=== PATIENT | male | born 2000 | race Caucasian/White ===

== ENCOUNTER 2024-01-04 14:24 | Outpatient (REF) | payer SELFPAY ==
[2024-01-04 14:27] VITALS: BP 126/93; PULSE 77; RESP 18; TEMP 36.4; O2SAT 97; BMI 32.7
--- NOTE | 2024-01-04 15:07 | EDS_ITS ---
HPI History of Present Illness HPI Narrative: Patient presents with needlestick exposure to left index finger that occurred today. 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 Patient states there is minimal bleeding. Patient states he squeezed a finger and irrigated. Patient is unsure of the source patient had lab work drawn. Patient knows who the source patient is. Patient states his immunizations are up-to-date. Patient denies any redness or swelling. Chief Complaint: Occup Expose Onset/Context/Timing Onset: Today Context: Sudden Onset Quality of Pain: Dull Location: Proximal phalanx left index finger Maximum Severity: Mild Worsened by: Nothing Relieved by: Nothing Narrative Tetanus Immunization: <5 years [facility] Medical History (Updated 01/04/24 @ 15:[address] Eduardo Yeung DO) Asthma Allergy/AdvReac Type Severity Reaction Status Date / Time No Known Allergies Allergy Verified 01/04/24 14:26 no surgical history Social History Smoking Status: Never smoker ROS ROS ED Constitutional Constitutional ED: Denies chills or fever(s) Eyes Eyes: Denies blurry vision or change in vision ENT ENT ED: Denies rhinorrhea or sore throat Cardiovascular Cardiovascular: Denies chest pain or palpitations Respiratory/Chest Respiratory/Chest: Denies cough or dyspnea Gastrointestinal Gastrointestinal: Denies nausea or vomiting Genitourinary Genitourinary ED: Denies dysuria or hematuria Musculoskeletal Musculoskeletal: Denies back pain or neck pain Integumentary Denies abscess or rash Neurologic Neurologic: Denies headache(s) or weakness Allergic/Immunologic Allergic/Immunologic ED: Denies mouth swelling or urticaria EXAM Physical Exam Const Vital Signs: 01/04/24 14:27 Temperature 97.6 F L Temperature Source Temporal Pulse Rate 77 Respiratory Rate 18 Blood Pressure 126/93 H Blood Pressure Mean 104 Pulse Ox 97 Oxygen Delivery Method Room Air Positive well nourished and well developed General Appearance ED: well developed and NAD Neck full ROM Skin Skin Narrative: There is a small puncture wound on the volar aspect of the proximal phalanx of the left index finger near the PIP joint. There is no active bleeding noted. There is full range of motion. There is no erythema noted. There is no discharge or drainage noted. Sensation was intact to light touch in all digits. Capillary refill was less than 2 seconds in all digits. Strength is 5/5 in flexion and extension of the MP, PIP, and DIP joints. There is no tenderness over the flexor tendon. There is no swelling noted. MDM MDM MDM Narrative Medical decision making narrative: Postexposure labs were obtained. Patient was instructed to follow-up with employee health. Patient was instructed to keep wound clean and dry. Patient was instructed to return if worse in any way. Patient understood and was agreeable with the plan. All questions were answered. Discharge Plan Triage Chief Complaint: Occup Expose ED Provider: Eduardo Yeung Dx/Rx/DC Orders Clinical Impression: Accidental needlestick injury with exposure to body fluid, Asthma Instructions: ED NEEDLE STICK Health Care Worker Disposition Disposition: Home, Self Care
[2024-01-04 15:27] VITALS: BP 120/89; PULSE 65; RESP 16; TEMP 36.9; O2SAT 100
--- NOTE | 2024-01-04 15:31 | ED.RN ---
1520: spoke w/ John Grider and doctor Anjana, patient does not need blood testing at this time. Patient instructed to follow-up w/ employee health and primary provider.
== END 2024-01-04 15:30 | disposition home or self-care (01) ==
LOC: ED 14:24
PROVIDERS: PCP Family Medicine; Visit Provider Emergency Medicine
DX: Z77.21 Contact with and (suspected) exposure to potentially hazardous body fluids (principal); W46.0XXA Contact with hypodermic needle, initial encounter

== ENCOUNTER → 2024-07-05 | Outpatient (CLI) | payer OTHER, SELFPAY ==
[2024-07-05 13:15] LABS: Absolute Lymphocyte Count 1.35 X10^3/uL (0.83-4.51); Basophil# 0.02 X10^3/uL; Basophil% 0.4 % (0-1); Eosinophils% 1.9 % (0-5); Hematocrit 46.9 % (40-54); Hemoglobin 15.3 g/dL (13.0-16.5); Lymphocyte # 1.35 X10^3/ul (0.83-4.51); Lymphocyte % 25.8 % (19-41); Mean Corp Hgb Conc 32.6 g/dL (32-36); Mean Corpuscular Hgb 28.3 pg (27.0-32.0); Mean Corpuscular Volume 86.7 fL (80-94); Mean Platelet Vol. 9.7 fl (6.2-12.0); Monocyte# 0.73 X10^3/uL; NRBC Flagged by Analyzer 0 % (0-5); Neutrophil # 3.01 X10^3/uL (2.7-7.7); Neutrophil % 57.5 % (47-70); Platelet Count 204 K/mm3 (150-450); RBC Distribution Width CV 12.6 % (11.6-14.6); RBC Distribution Width SD 39.7 fl (35.1-43.9); Red Blood Count 5.41 M/mm3 (4.6-6.2); White Blood Count 5.2 K/mm3 (4.4-11.0)
[2024-07-05 13:34] LABS: Vitamin B12 487 pg/mL (211-911); Vitamin D,25 Hydroxy 24.7 ng/mL
[2024-07-05 13:59] LABS: ALB/GLOB Ratio 1.1 RATIO (0.9-2.4); AST(SGOT) 18 U/L (15-37); Alanine Aminotransfer ALT/SGPT 42 U/L (16-61); Alkaline Phosphatase 76 U/L (45-117); Anion Gap 3 (5-15); BUN 12 mg/dL (7-18); BUN/Creat Ratio 12.9 RATIO (10-20); Calcium,Total 9.6 mg/dL (8.5-10.1); Chloride 108 mmol/L (98-107); Creatinine, Serum 0.93 mg/dL (0.70-1.30); EST Glomerular Filtration Rate 106 mL/min (>60); Est Glom Filt Rate - Afr Amer 128 mL/min (>60); Globulin 3.7 g/dL (2.2-4.2); Glucose 85 mg/dL (74-106); Magnesium 2.2 mg/dL (1.6-2.6); Potassium 3.7 mmol/L (3.5-5.1); Protein, Total 7.7 g/dL (6.4-8.2); Sodium Level 139 mmol/L (136-145)
[2024-07-11 15:08] LABS: Testosterone, % Free 2.49 % (1.50-4.20); Testosterone, Free 8.12 ng/dL (5.00-21.00); Testosterone, Total 326 ng/dL (264-916)
== END | disposition home or self-care (01) ==
LOC: LAB 12:26
PROVIDERS: PCP Family Medicine; Referring Provider Family Medicine; Visit Provider Family Medicine
DX: F41.8 Other specified anxiety disorders (principal); R53.83 Other fatigue
CPT/HCPCS: 36415; 80053; 82306; 82607; 83735; 84402; 84403; 84443; 85025

== ENCOUNTER → 2024-08-30 | Outpatient (CLI) | payer OTHER, SELFPAY | END | disposition home or self-care (01) | LOC: SL 19:49 | PROVIDERS: PCP Family Medicine; Visit Provider Internal Medicine Pulmonary Disease | DX: G47.10 Hypersomnia, unspecified (principal); G47.33 Obstructive sleep apnea (adult) (pediatric) | CPT/HCPCS: 95810 ==

== ENCOUNTER → 2024-08-31 | Outpatient (CLI) | payer OTHER, SELFPAY ==
[2024-08-31 11:27] LABS: Amphetamine Urine VISTA NEGATIVE (<1000 ng/mL); Barbiturate Urine VISTA NEGATIVE (< 200 ng/mL); Benzodiazepine Urine VISTA NEGATIVE (< 200 ng/mL); Cocaine Urine VISTA NEGATIVE (< 300 ng/mL); Ecstacy Urine VISTA NEGATIVE (< 500 ng/mL); Methadone Urine VISTA NEGATIVE (< 300 ng/mL); PCP Urine VISTA NEGATIVE (< 25 ng/mL); THC Urine VISTA NEGATIVE (< 50 ng/mL); Vista UDS pH Range 6
== END | disposition home or self-care (01) ==
LOC: SL 06:40
PROVIDERS: PCP Family Medicine; Visit Provider Internal Medicine Pulmonary Disease
DX: G47.10 Hypersomnia, unspecified (principal)
CPT/HCPCS: 80307; 95805

== ENCOUNTER 2024-09-14 20:16 | Emergency (ER) | payer OTHER, SELFPAY ==
[2024-09-14 20:17] VITALS: BP 147/96; PULSE 81; RESP 16; TEMP 36.3; O2SAT 96; BMI 33.0
--- NOTE | 2024-09-14 21:33 | EDS_ITS ---
HPI History of Present Illness Chief Complaint: Occup Expose [facility] Medical History ADHD SCOTT (generalized anxiety disorder) Asthma Home Medications ?Medication ?Instructions ?Recorded ?Last Taken ?Type buspirone 7.5 mg tablet 7.5 mg PO BID #60 tabs 09/12/24 Unknown Rx methylphenidate HCl 18 mg 18 mg PO QAM 30 days #30 tabs 09/12/24 Unknown Rx tablet,extended release 24 hr albuterol sulfate 90 mcg/actuation 2 puff inhalation Q6H PRN 09/14/24 Unknown History aerosol inhaler shortness of breath or wheezing Allergy/AdvReac Type Severity Reaction Status Date / Time No Known Allergies Allergy Verified 09/14/24 20:19 Family History Grandfather Alcoholism Cancer Mental disorder Parkinson disease Mother Anxiety Arthritis Depression High cholesterol Mental disorder Father Anxiety Asthma Depression Hypertension High cholesterol Grandmother Anxiety Autoimmune disorder Depression Heart disease Hypertension Parkinson disease CVA (cerebral vascular accident) Social History (Updated 09/14/24 @ 21:35 by Joanna Bowen) household members: spouse current occupational status: employed Smoking Status: Never smoker EXAM Physical Exam Const Vital Signs: 09/14/24 20:17 Temperature 97.3 F L Temperature Source Temporal Pulse Rate 81 Respiratory Rate 16 Blood Pressure 147/96 H Blood Pressure Mean 113 Pulse Ox 96 Oxygen Delivery Method Room Air MDM MDM MDM Narrative Medical decision making narrative: HISTORY OF PRESENT ILLNESS: 24 M here with concern for formaldehyde exposure. This occurred just prior to arrival. There is no direct contact but he was in a room with mild hide spilled is being cleaned with a mop. He notes that coworkers were having symptoms. So he presents to ED for further evaluation REVIEW OF SYSTEMS: Pertinent positives: exposure to formaldehyde Pertinent negatives: Difficulty swallowing, eye irritation, shortness of breath, skin irritation PHYSICAL EXAM: Nursing triage notes reviewed, Vital signs reviewed Constitutional: please see mdm HENT: MMM Eyes: Pupils equal round and reactive to light, Extraocular muscles intact, visual hardy intact, visual acuity 20/13 on the right Neck: No stridor, no JVD, full neck ROM Lungs: Clear to auscultation, No wheezing or rales. No increased work of breathing, no conversational dyspnea, no accessory muscle use, no nasal flaring. No respiratory distress noted Heart: Regular rate and rhythm, No murmurs, No rubs and No gallops, 2+ distal pulses (radial, femoral, posterior tibial) in all extremities Abdomen: Soft, there is no tenderness, rigidity, rebound or guarding, no obvious peritoneal signs, no palpable pulsatile abdominal masses, no auscultated abdominal bruit : No CVAT Extremities: No edema Neuro: No new focal neurological deficits, cranial nerves II through XII intact, 5/5 strength in all present extremities. Intact sensation to light touch in all present extremities, 2+ reflexes bilateral patella tendons. Skin: No rash or lesions noted MEDICAL DECISION MAKING: Chief Complaint: formalin exposure Factors affecting care: hx of accidental needle stick Social determinants of health: none History obtained from others: none Consults: Poision control : direct exposure could cause eye irritation. recommended decontamination. Avoid re-exposure. WOuld not expect systemic toxicity without direct exposure. With direct exposure. MDM Narrative: The patient was initially hemodynamically stable, afebrile and nontoxic- appearing. Exam without obvious mucosal involvement. No obvious skin irritation or eye irritation. Patient was immediately decontaminated. Patient not appear to have any significant exposure. In fact he is not directly exposed to formalin or formaldehyde he has no symptoms. He is appropriate for discharge The patient and/or family, caregivers express understanding. The patient and/or family, caregivers agrees with the plan. Shared decision making: I will have a discussion with the patient and or visitors regarding risk/benefits of further testing or admission. They will be made aware of of the risk/benefits inherent in this decision they will be given the opportunity to voice understanding. Total critical care time today provided was at least 0 minutes. This excludes separately billable procedures. Critical care time (if documented) is secondary to the patient having high probability of clinically significant/life threatening deterioration in the patient's condition which required my urgent intervention. Impression: 1. Occupational exposure 2. Formaldehyde exposure Dispo: Discharge home This note was generated with [employer] dictation software. It may contain incorrect words, spelling, and punctuation that were not noted in review of the chart prior to signing. Discharge Plan Triage Chief Complaint: Occup Expose ED Provider: Pawan Kurtz Dx/Rx/DC Orders Prescriptions: No Action buspirone 7.5 mg tablet 7.5 mg PO BID Qty: 60 1RF methylphenidate HCl 18 mg tablet extended release 24hr 18 mg PO QAM 30 Days Qty: 30 0RF albuterol sulfate 90 mcg/actuation HFA aerosol inhaler 2 puff inhalation Q6H PRN (Reason: shortness of breath or wheezing) Primary Care Provider: Nita Verma Referrals: Nita Verma MD [Primary Care Provider] - Print Language: Slovak
[2024-09-14 22:29] VITALS: BP 140/78; PULSE 78; RESP 16; TEMP 36.6; O2SAT 100
== END 2024-09-14 22:30 | disposition home or self-care (01) ==
PROVIDERS: Emergency Provider Emergency Medicine; PCP Family Medicine; Visit Provider Emergency Medicine
DX: Z57.9 Occupational exposure to unspecified risk factor (principal); T59 Toxic effect of other gases, fumes and vapors; J45.909 Unspecified asthma, uncomplicated
CPT/HCPCS: 99283

== ENCOUNTER 2025-08-08 08:00 | Outpatient (RCR) | payer OTHER, SELFPAY ==
--- NOTE | 2025-08-08 09:00 | BH.MTP_ITS ---
Master Treatment Plan Patient Information Program Physician:: Dr. Sendy Hagen Primary Therapist:: Prem Rivera Psychiatric Diagnoses Psychiatric Diagnoses:: Major Depressive Disorder, recurrent, severe, w/o psychotic features Generalized Anxiety Disorder Diagnosis Code(s):: F33.2; f41.1 Estimated LOS Estimated LOS (in weeks):: 7 Problem/Goal #1 Problem/Goal #1 Stated Goal:: Client will reduce depressive symptoms, worthlessness, suicidal ideations, anhedonia, and negative core beliefs AEB self-report and reduced scores on the depression and suicidal thought domains of outcomes measurements. Description of Barriers: Mental health stigma, significant relationships confl icts, stressful job, hx of addiction/compulsive behaviors. Functional Impact: Recent separation from , reported suicidal thoughts to his outpatient therapist just prior to IOP admit, long-standing mental health struggles. Goal Relevant Strengths/Supports: motivated and insightful. Objectives Objective #1: Stated Objective: Client will identify 2-3 cognitive distortions and core mistaken beliefs that lead to depressive symptoms and learn 2-3 ways to manage these thoughts to reduce symptoms. Interventions: Through individual and group counseling will provide education on the most cognitive distortions and mistaken beliefs. Will also teach client the connection between thoughts, emotions, and feelings. Therapist will use CBT and DBT techniques to help client gain awareness of thinking errors and learn how to more effectively handle negative thoughts. Discharge Criteria: Will be able to identify 2-3 commonly used cognitive distortions and mistaken beliefs as well as strategies to challenge/reframe. Target Date: 09/26/25 Review Date: 08/29/25 Objective #2: Stated Objective: Client will work with therapist to develop a concrete ?crisis plan? or emotional dysregulation plan to implement during depressive episodes or acute events which includes emergency telephone numbers, internal/external coping strategies for SI/overwhelming emotions, lists of supports, warning signs, positive aspects of life, and motivations Interventions: Through individual and group interventions with provide education on importance of a crisis plan? or emotional dysregulation plan which as well as strategies to implement in these plans. Discharge Criteria: Completed emotion regulation plan Target Date: 09/26/25 Review Date: 08/29/25 Problem/Goal #2 Problem/Goal #2 Stated Goal:: Client will reduce overall frequency, intensity, and duration of anxiety to improve functioning AEB self report and reduction of scores on the anxiety domain of outcome measurement. Loi also reduce engagement in unhealthy compulsive acts and develop healthy coping strategies to manage anxiety. Description of Barriers: mental health stigma, significant relationships conflicts, stressful job, hx of addiction/compulsive behaviors. Functional Impact: According to pt his anxiety is at the core of his mental health struggles. His anxiety often causes depression, suicidal ideations, and unhealthy behaviors. He will often cope with his anxiety through unhealthy behaviors. Goal Relevant Strengths/Supports: Motivated and insightful Objectives Objective #1: Stated Objective: Complete a daily log for two weeks noting anxiety levels and coping behaviors. Will also create accountability strategies (e.g., bre blo ckers, scheduled check-ins) to support progress. Interventions: Through individual and group counseling will provide psychoeducation on triggers and coping cycles. Patient will complete a daily log tracking anxiety levels, urges, and behaviors for 14 consecutive days. Discharge Criteria: Will be able to identify triggers and 2-3 calming/coping strategies for [id number] anxiety. Will have competed a daily tracking log and accountability strategies to decrease unhealthy compulsive acts. Target Date: 09/26/25 Review Date: 08/29/25
--- NOTE | 2025-08-08 09:00 | BH.PSA_ITS ---
Source of Information Presenting Problems/Circumstances Problems, Referral Source, Mental Status, Client: The patient was referred to the Intensive Outpatient Program following an acute psychosocial stressor that triggered suicidal ideation. This episode occurred in the context of marital separation related to compulsive sexual behavior relapse. The patient presents with exacerbated symptoms of depression and anxiety, including hopelessness, worthlessness, and ruminative thoughts about significant life changes. While he currently denies active suicidal intent, chronic risk factors and functional impairment warrant a higher level of care. Psychiatric Presentation Psych Issues & Need for Admission Psychiatric Issues:: MDD, Anxiety, ADHD, and problematic porn use which is significantly impacting his marriage. Past Psychiatric History MH Treatment Hx First hospitalization:: no history of hosptializations Most recent hospitalization:: n/a Medication Trials:: No ECT Therapy:: No Current providers for mental health treatment (counselor, psychiatrist, director of casework department, etc.): Dr. Cameron Gr- Psychiatrist, [facility] Melissa Garcia- Therapist, [facility]- support group (he attends for porn addiction) Development & Family of Origin Family Who currently lives in your home?: Currently lives with his . Family History Family History Grandfather Alcoholism Cancer Mental disorder Parkinson disease Mother Anxiety Arthritis Depression High cholesterol Mental disorder Father Anxiety Asthma Depression Hypertension High cholesterol Grandmother Anxiety Autoimmune disorder Depression Heart disease Hypertension Parkinson disease CVA (cerebral vascular accident) Ethnicity Culture Do you identify yourself with any particular cultural, ethnic background, or community?: No Sexuality Sexual Orientation: Heterosexual Spirituality Christian Do you currently identify with any organized mosque?: Jainism Beliefs Is there a particular form of support from this community you can use for your recovery?: Yes (Pt's reinier is very important to home. Attends a reinier-based support group) Mental Status Memory Recent Memory: Good Remote Memory: Good Concentration Concentration: Fair Eye Contact Eye Contact: Fair Speech Speech: Articulate Thought Process Thought Process: Ruminations Insight: Good Judgment: Fair Behavior: Anxious Orientation Orientation: Time, Person, Place and Situation Appearance Appearance: Neat/clean Mood Mood: Anxious and Depressed Affect Affect: Flattened Violent Behavior/Abuse History Homicidal Ideation Do you have any homicidal thoughts? If so, explain:: No Abuse Have you ever been abused?: No Safety Do you ever feel threatened in your home? If yes, describe:: No Adult Social History Age 18 to Present Describe your current support system:: , friends, and gnosticism. 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 If yes, describe:: No Court Orders Have you had any past court orders for psychiatric treatment?: No Do you have a present court order for psychiatric treatment?: No Discharge Planning Needs Anticipated Follow-Up Private Therapist/Psychiatrist:: Melissa Whaley, [facility]- therapist, [facility] Other (to be determined): Dr. Cas Gr- psychiatrist, [facility] Family and Caregiver Contacts:: Bhavana Dash- Release of Information Signed:: Yes (therapist and psychiatrist) Certified Medical Technician Assistant's Assessment Client's Needs What are the client's feelings about the program?: I have to do something to make things better What are the client's goals?: ?Develop coping mechanisms for anxiety? ?Explore root causes of anxiety? ?Decrease compulsive behaviors? What are the client's strengths?: Pt has good insight into his anxiety and compulsive acts Diagnoses Diagnoses Diagnosis #1:: Major Depressive Disorder, recurrent, severe without psychotic features Diagnosis #2:: Generalized Anxiety Disorder Diagnosis #3:: Attention-Deficit/Hyperactivity Disorder Interpretive Summary Interpretive Summary Interpretive Summary: The patient is a 25-year-old male with a history of Major Depressive Disorder, recurrent, severe without psychotic features, Generalized Anxiety Disorder, and Attention-Deficit/Hyperactivity Disorder. He has no prior psychiatric hospitalizations.The patient was referred to the Intensive Outpatient Program (IOP) by his outpatient therapist following an acute psychosocial stressor that precipitated suicidal ideation. On 07/26/25, he presented to his therapist?s office expressing suicidal thoughts. A safety plan and lethal means counseling were completed at that time. His spouse was notified, and firearms were removed from the home. The patient currently has no access to lethal means. The patient reports a history of compulsive sexual behavior, described as ?porn addiction,? with a recent relapse that contributed to marital separation. He verbalized, ?My marriage is falling apart.? He identifies this relational disruption as a significant source of distress. At present, the patient denies active suicidal ideation, plan, or intent. He has no history of suicide attempts but endorses passive thoughts of and survival ambivalence. He reports experiencing intermittent passive wishes for approximately eight years, coinciding with chronic depressive and anxiety symptoms. Current symptoms include depressed mood, anhedonia, poor sleep, decreased appetite, low energy, feelings of hopelessness and worthlessness, and heightened anxiety related to marital uncertainty. He describes persistent ruminative thinking about potential life changes, including housing, social connections, and financial implications. Despite these symptoms, he reports maintaining ?high motivation. The patient denies homicidal ideation, psychotic symptoms, and substance use concerns. Treatment Plan Recommendations Recommendations Guidelines Recommendations:: Due to recent suicidal ideations, long-standing passive thoughts of , and recent acute psychosocial stressors recommended IOP level of care to maintain safety, prevent decompensation, and increase healthy coping.
--- NOTE | 2025-08-08 09:00 | BH.MDN_ITS ---
Multi-Disciplinary Note Note 30-min Individual: Time Started:: 09:00 Date: 08/08/25 Purpose of session/treatment goals addressed:: Utilized the session to develop treatment plan goals and objective, review pertinent psychosocial hx, and discuss current symptoms. Eye Contact:: Good Motor Activity:: Appropriate Appearance:: Neat Speech:: Appropriate Mood:: Anxious and Depressed Affect:: Congruent Thoughts:: Linear, Logical and No evidence of hallucinations/delusions noted Staff Interventions:: rapport building, treatment planning, completed risk assessment / safety planning and goal setting Client Response:: Patient expressed anticipatory anxiety regarding his upcoming admission to an Intensive Outpatient Program (IOP). On 07/24/25, he presented to his outpatient therapist with suicidal ideation, including identified methods. Following safety planning and lethal means counseling, he was referred to a higher level of care (IOP). 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 These concerns have significantly impacted his marital relationship. Patient reports that his temporarily and stayed with her mother for several days but has since returned home. He describes the relationship as having ?a little hope? but acknowledges feeling ?on extremely thin ice.? Patient is forthcoming about his compulsive pornography use, identifying it as an unhealthy coping mechanism for anxiety. When discussing treatment goals, patient stated: ?Develop coping mechanisms for anxiety? ?Explore root causes of anxiety? ?Decrease compulsive behaviors? Additionally, patient reports persistent low self-esteem and feelings of inadequacy rooted in childhood experiences. He struggles to identify effective, [id number] coping strategies for managing distress. Risks/Concerns:: Risk assessment completed. Denies active suicidal ideations, plan, or intent. Progress Toward Goals/Plan:: Limited progress as this was pt's first day in [facility]. Will be admitted to [facility] to maintain safety, increase healthy coping, and provide support. Time Stopped:: 09:30
--- NOTE | 2025-08-08 10:30 | BH.NA_ITS ---
Physical Data Vital Signs Pulse Rate: 66 Blood Pressure: 145/97 Height/Weight Height: 1.8 m Weight:: 93.44 kg Weight in Pounds: 206.0 lbs Current Medication Compliance Medication Compliance Do you take your medication as prescribed?: Yes Functional Assessment Sleep Pattern Describe any problems with sleeping: Client states he sleeps about 6-7 hours per night. Sensory/Communication Assess Vision Problems Do you have any vision problems?: Glasses Communication Problems Do you have difficulty understanding what people are saying?: No Medical Problems/History Respiratory Conditions Respiratory: Asthma Neurological Conditions Neurological: Other (See comments) (narcolepsy- diagnosed in November 2024) Pain Assessment Do you have acute or chronic pain?: No Family History Family History Grandfather Alcoholism Cancer Mental disorder Parkinson disease Mother Anxiety Arthritis Depression High cholesterol Mental disorder Father Anxiety Asthma Depression Hypertension High cholesterol Grandmother Anxiety Autoimmune disorder Depression Heart disease Hypertension Parkinson disease CVA (cerebral vascular accident) Surgical History Surgical History Have you had any surgeries? If so, list type and date:: No Substance Abuse Substance Abuse Please describe substance abuse in the last 30 days:: Client states he has not had alcohol in 2-3 years. Client denies tobacco or substance use. Client states he has 1-2 cups of coffee per day. Mental Status Summary Mental Status Significant Findings/Observations on Appearance and Mood:: Client is alert and oriented x 4. Client is casually groomed with good hygiene. Client is cooperative with assessment. Client makes fair eye contact. Client's voice has normal rate and volume. Client appears mildly anxious and is somewhat tearful during assessment. Client has a somewhat restricted affect. Client makes logical associations and has normal processing. Client denies delusions/hallucinations. Client reports some intrusive fleeting SI, but denies plan/intent. Suicide Assessment Suicidal Ideation Are you currently or have you been suicidal in the past?: Yes Suicidal Intentional Rating Scale (SIRS): Suicidal thoughts (past) (reports fleeting SI that is intrusive, states he does not want to hurt himself, denies plan/intent) Physician Notification Past Psychiatric History MH Treatment Hx Past Psychiatric Medications:: Buspar, Lexapro Age of first mental health symptoms: Client states he first took Lexapro for mental health around age 19. Describe (age, circumstance, etc) any past hospitalizations: None. Current providers for mental health treatment (counselor, psychiatrist, senior case manager, etc.): Dr. Gr for psychiatry and Melissa Toth for therapy at [facility] Fall Risk Assessment Age Age: Less than 60 Mental Status Mental Status: Willing & able to ask for assistance when needed Physical Status Physical Status: No problems Impairments Impairments: None Elimination Elimination: Continent AND independent Gait or Balance Gait or Balance: Walks independently Hx of Falls History of falls in the past 6 months: No known history Medications/Substances Psychotropics:: Antidepressants and Stimulants Medications/substances used within the past 24 hours or ordered to administer: 1-2 of the medications/substances listed above Total Score Total Points:: 1 RN Summary of Impressions Impressions Recommendations Impressions: Psychiatric Issues: generalized anxiety disorder, major depressive disorder Level of Care How do the client's current symptoms and functional deficits support need for this level of care?: Client spoke with his therapist about IOP and now has started IOP for recent SI and stressors affecting mental health. Client states his appetite has been poor for the last couple of weeks due to anxiety/depression. Client reports fleeting suicidal thoughts that he describes as intrusive and states he does not want to hurt himself. Client denies plan or intent with fleeting SI. Client states he has been having issues with coping skills for history of trauma in his life, compulsive behaviors, depression/anxiety and marital issues. 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 IOP will promote gains and prevent further decompensation while providing social support and skills training. Nutritional Screen Height/Weight Height: 1.8 m Weight:: 93.44 kg Weight in Pounds: 206.0 lbs Nutrition Screening Normal Weight: 93.44 kg Normal/Usual Weight in Pounds: 206.0 lbs Have you lost weight without trying: No Have you been eating poorly because of a decreased appetite: Yes (client states appetite has been poor the last couple of weeks) Recently been on tube feeds, TPN, or have any nutritional access device in place: No Have any large open wounds or wounds that are not healing: No Calculated Weight Change: 0 Change in weight Score: 0 MST Screening Tool Score: 1
--- NOTE | 2025-08-08 10:52 | BH.DR.ITP ---
Initial Treatment Plan Patient Information Visit Information: ADMISSION DATE: EXPECTED LOS: 6-8 weeks Diagnoses:: MDD, SCOTT Problems/Symptoms Problem #1:: MDD Symptom:: Reports anhedonia, decreased sleep, crying spells, passive SI, worsened concentration and memory, poor appetite Problem #2:: SCOTT Symptom:: Significant levels of anxiety in most facets of life impacting functioning
--- NOTE | 2025-08-08 10:52 | PCM.BH.PSYEV ---
Intake Vital Signs 07/31/25 13:42 08/08/25 10:52 08/08/25 11:39 Height 1.8 m 1.8 m 1.8 m Weight: 93.44 kg BP 145/97 H Pulse 66 Intake Visit Reasons: Depression, SCOTT Allergies No Known Allergies Allergy (Verified 08/08/25 10:42) Medications ?Medication ?Instructions ?Recorded ?Confirmed ?Type albuterol sulfate 90 mcg/actuation 2 puff inhalation Q6H PRN 09/14/24 08/08/25 History aerosol inhaler shortness of breath or wheezing Bacillus coagulans 250 million 1 tab PO QDAY 11/01/24 08/08/25 History cell chewable tablet (Digestive Advantage Probiotic Gummy) bupropion HCl 150 mg 24 hr tablet, 150 mg PO QAM #30 tabs 07/02/25 08/08/25 Rx extended release (Wellbutrin XL) magnesium 250 mg tablet 250 mg PO QDAY 07/02/25 08/08/25 History multivitamin 1 tab PO QAM 07/02/25 08/08/25 History propranolol 10 mg tablet 10 mg PO BID PRN anxiety #60 tabs 07/02/25 08/08/25 Rx methylphenidate HCl 27 mg 27 mg PO QAM 30 days #30 tabs 08/06/25 08/08/25 Rx tablet,extended release 24 hr budesonide-formoterol HFA 160 2 puff inhalation 08/08/25 History mcg-4.5 mcg/actuation aerosol inhaler (Symbicort) hydroxyzine HCl 25 mg tablet 25 mg PO BID PRN PRN anxiety 08/08/25 08/08/25 History [facility] () Medical History (Updated 08/08/25 @ 15:[address] Sendy Hagen MD) ADHD Asthma SCOTT (generalized anxiety disorder) Family History Grandfather Alcoholism Cancer Mental disorder Parkinson disease Mother Anxiety Arthritis Depression High cholesterol Mental disorder Father Anxiety Asthma Depression Hypertension High cholesterol Grandmother Anxiety Autoimmune disorder Depression Heart disease Hypertension Parkinson disease CVA (cerebral vascular accident) Social History (Updated 09/14/24 @ 21:35 by Joanna Bowen) household members: spouse current occupational status: employed Smoking Status: Never smoker [facility] () History of Present Illness History provided by: patient Chief complaint: Anxious and stressed, depressed HPI: Fito is a 25y/o male who presented to [facility] IOP program for further evaluation and treatment of depression, SCOTT, ADHD, pornography addiction. He follows with Dr. Gr for outpatient psychiatry however is presenting to [facility] IOP due to acute stressor leading to SI. He was referred by his therapist after he relapsed on his porn addiction which caused significant difficulty in his marriage resulting in his leaving the house and staying with his [id number]. Given this stressor he did develop suicidal thoughts with method (using a gun) but guns have since been removed from the home. Notes today he is feeling anxious and stressed, has had poor sleep with very poor appetite over the past couple weeks, concentration worse than usual despite still taking his Concerta and is having difficulty with his memory due to his anxiety and depression. Does have occasional crying spells and is having passive thoughts of not wanting to be alive but no active intent or plan, also notes anhedonia. Reports severe anxiety and said he so anxious that he is in survival mode. Sometimes has panic attacks but primarily has high underlying levels of anxiety. Reports some history with nightmares and flashbacks of bad memories but was not any more specific than that. Is presently on Wellbutrin and has found this helpful with his anxiety and attention. Was previously on 20 mg of Lexapro however despite doing well on this for a long time stopped working the beginning of this year and this was discontinued. Patient was started on BuSpar but did not find that helpful and ultimately was placed on Wellbutrin by his outpatient psychiatrist, Dr. Gr. Denies any HI, no AH/VH. 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 -Psychiatrist: Following with Dr. Gr on an outpatient basis, prior to that was at [place] [id number] -Therapist: Has been following with Melissa Whaley however per her most recent note he may need to find alternate provider due to scheduling problems -Psychiatric hospitalizations: No -Suicide attempts: No -NSSI: No -Medication trials: Vyvanse caused panic attacks, Adderall with anger problems and lack of appetite, Lexapro that eventually lost efficacy, BuSpar he did not find helpful though was only at 7.5 mg twice daily reportedly Medical Hx: -Medical problems: Asthma -Allergies: No listed allergies -Medications: See home med list Substance use Hx: - No noted substance use Family Hx: -Mental illness: Mother with bipolar 2, maternal aunt bipolar 1, father with depression Psychosocial: -Born/raised: Born in [place], raised in [place] -Parents: -Siblings: Patient is the third of 4 children, he has 2 older sisters and 1 younger brother -Current living situation and location: Living with in [facility] -Marital status: last July to his , Yanely. 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 -[employer] affiliation: [employer] - hx: No -Access to guns: Per report guns were taken away due to the suicidal thoughts -Legal problems: None Medical ROS: General: Denies fever HENT: Denies headache EYES: Denies acute changes in vision Resp: Has been more SOB w/ asthma recently Cardiac: Denies chest pain GI: denies changes in bowel, denies nausea/vomiting : Denies changes in urination MSK: Denies weakness Neuro: Denies any numbness/tingling Heme: Denies any bleeding or bruising Skin: Denies rashes Psychiatric: As above Exam () Mental Status Exam- Psych () Appearance casually dressed, adequately groomed and no apparent distress Attitude cooperative and calm Activity/Motor Behavior MSE activity/motor behavior finding no adventitious movements Speech regular rate and regular volume Mood anxious Affect restricted Thought Process linear and logical Thought Content no delusions and no hallucinations Suicidal Ideation passive Homicidal Ideation none Attention intact Concentration intact Sensorium/Orientation awake and alert Memory/Cognition intact Insight fair Judgement fair Assessment & Plan () Assessment & Plan (1) MDD (major depressive disorder): Plan: Reports anhedonia, decreased sleep, crying spells, passive SI, worsened concentration and memory, poor appetite. Discussed optimizing current medications versus adjunct of medications, ultimately will increase patient's Wellbutrin to 300 mg XL, given he responded very well to Lexapro in the past could consider Celexa if additional agent needed (2) SCOTT (generalized anxiety disorder): Plan: Patient found Wellbutrin to actually be helpful with his anxiety and attention therefore we will attempt to uptitrate this, can consider adding SSRI depending on symptoms and response. Had still been a fairly low levels of BuSpar, could always consider augmentation or retrialing in the future if other options are exhausted (3) ADHD: Plan: Continue Concerta, prescribed by his primary psychiatrist. Additionally Wellbutrin has been helping with his inattention, will be increasing this as above Plan Detail Assessment: The patient will begin IOP in Behavioral Health at [facility]. The program's structure, support, education, and therapy aim to prevent deterioration of symptoms and avoid the need for PHP or inpatient hospitalization. I have a reasonable expectation that the patient will make practical improvements in their presenting symptoms and will be discharged to a lower level of care. Charges/Coding Behavior Health Behavior Health Psychiatric Evaluation: 87075 Psych Diag Exam w/ Medical Services
--- NOTE | 2025-08-08 11:10 | BH.SGPN.GN ---
Behaviors/Verbalizations/Mental Status: []Pt alert and oriented, casually dressed and groomed. Eye contact fair. Motor activity appropriate. Speech within normal limits. Affect constricted, mood dysthymic. Thoughts linear, logical, no signs of hallucinations or delusions. Client Response/Progress/Benefit: [] Pt engaged participant AEB participating in the activity, providing input during small group discussion, and listening attentively to others. Pt appeared to connect with discussion in the benefits of addressing mental health stigma which included: improved relationships, increased willingness to seek help, increased happiness, and improved confidence. Group brainstormed strategies to combat social and perceived stigma. Pt shared one thing pt can do to combat stigma is to stop looking at self so negatively and working on being kinder to himself. Appeared to benefit from increasing awareness of strategies to combat stigma. Pt is to continue IOP to improve healthy coping skills, challenge negative thinking, and prevent decompensation.
[2025-08-08 11:39] VITALS: BP 145/97; PULSE 66
--- NOTE | 2025-08-08 14:26 | BH.MDN ---
Multi-Disciplinary Note Note 30-min Individual: Time Started:: 11:00 Date: 08/08/25 Eye Contact:: Good Motor Activity:: Appropriate Appearance:: Casual Speech:: Appropriate Mood:: Depressed Affect:: Congruent Thoughts:: Linear, Logical and No evidence of hallucinations/delusions noted Time Stopped:: 11:30
--- NOTE | 2025-08-10 09:00 | BH.SGPN.GN ---
Behaviors/Verbalizations/Mental Status: [] Eye contact is good. Motor activity is appropriate. Appearance is casual. Speech is Appropriate. Mood is dysthymic. Affect is congruent. Thoughts are linear and logical. No evidence of psychosis. Reviewed daily check in sheet and no reports of suicidal ideations Client Response/Progress/Benefit: [] Pt participated when prompted. Attentive. Daily symptom tracker notes 3/5 for depression, irritability, and anxiety. Able to identify mental health wins which included exercise I'm back in the gym. Stressors include marriage struggles noting tension. Emotion is anxious and on-edge. Limited progress noted. Benefited from group support, encouragement, and feedback. Will continue in IOP to maintain safety, prevent decompensation, and increase healthy coping skills. Narrative Note: []
--- NOTE | 2025-08-10 10:00 | BH.SGPN.GN ---
Behaviors/Verbalizations/Mental Status: [] Eye contact is fair to good. Motor activity is appropriate. Appearance is casual. Speech WNL. Mood is anxious. Affect is constricted. Thoughts are linear and logical. No evidence of psychosis. Client Response/Progress/Benefit: [] Client was an active participant in group discussion and experiential activity. Attentive during psychoeducation on resilience. Participated in interactive discussion with peers on the definition of resilience. Group identified that resiliency can be impacted by; past experiences, personality, and current mental health state. Group also worked together to identify the benefits of being resilient and how it is related to mental health. Worked well with peers in small group in which they identified factors that contribute to resilience. Benefited from increased awareness of resilience and the factors that contribute to building resilience. Will continue in IOP to build confidence, challenge negative thoughts, and prevent decompensation.
--- NOTE | 2025-08-10 11:03 | BH.SGPN.GN ---
Behaviors/Verbalizations/Mental Status: []Pt alert and oriented, neatly dressed and groomed. Eye contact good. Motor activity appropriate. Speech within normal limits. Affect constricted, mood anxious. Thoughts linear, logical, no signs of hallucinations or delusions. Client Response/Progress/Benefit: [] Pt responded well to session AEB completing the resilience worksheet provided. Pt participated in the discussion and worked cooperatively with group to identify strategies to enhance each of the components discussed. pt reports belief they use the trait ?making connections? and pt wants to work on nurturing a positive view of self. Pt seemed to benefit from discussing strategies for improving personal resilience and identifying resilience traits pt already possesses. Will continue IOP tx to prevent decompensation, gain distress tolerance skills, and improve daily functioning. Narrative Note: []
== END 2025-08-12 23:59 ==
LOC: BHIOP 08:00
PROVIDERS: PCP Family Medicine; Referring Provider Internal Medicine; Visit Provider Internal Medicine
DX: F33.2 Major depressive disorder, recurrent severe without psychotic features (principal); F41.1 Generalized anxiety disorder
CPT/HCPCS: S9480; 90832; 90853

== ENCOUNTER 2025-08-13 08:07 | Outpatient (RCR) | payer OTHER, SELFPAY ==
--- NOTE | 2025-08-13 09:00 | BH.SGPN.GN ---
Behaviors/Verbalizations/Mental Status: [] Eye contact is good. Motor activity is appropriate. Appearance is casual. Speech is Appropriate. Mood is anxious. Affect is congruent. Thoughts are linear and logical. No evidence of psychosis. Reviewed daily check in sheet and no reports of suicidal ideations Client Response/Progress/Benefit: [] Pt participated at times during the group discussions. States ? I made it through the holidays?. Elaborated briefly on the stress related to the holidays and how it impacts his mental health. ? No major anxiety attacks?. Shared situational stressors and feeling overwhelmed. Emotion is ? anxious and on-edge?. Limited progress noted. Benefited from group support, encouragement, and feedback. Will continue in IOP to maintain safety, increase healthy coping, and prevent decompensation Narrative Note: []
--- NOTE | 2025-08-13 10:10 | BH.SGPN.GN ---
Behaviors/Verbalizations/Mental Status: []Pt alert and oriented, neat appearance. Eye contact fair. Motor activity appropriate. Speech within normal limits. Affect constricted, mood dysthymic. Thoughts linear, logical, no signs of hallucinations or delusions. Client Response/Progress/Benefit: [] Pt responded well to session AEB sharing and listening attentively to others. Group provided examples of types of support (professional, pets, hobbies, community, spouse, reinier, etc) as well as benefits of having social support, including: validation, get perspective, and accountability. Pt also participated in group discussion regarding the barriers to accessing support. Pt identified positive supports to include: counselors, self-care, and men's group. Pt participated in experiential activity illustrating the impact communication, boundaries, and patience play in creating healthy support systems. Pt appeared to benefit from increased knowledge of the benefits of social support and greater self-awareness. Pt to continue IOP to improve consistent use of coping skills, challenge distortions, and prevent decompensation.
--- NOTE | 2025-08-13 11:15 | BH.SGPN.GN ---
Behaviors/Verbalizations/Mental Status: [] Client alert and oriented, casually dressed and groomed. Eye contact good. Motor activity appropriate. Speech within normal limits. Affect congruent, mood content. Thoughts linear, logical, no signs of hallucinations or delusions. Client Response/Progress/Benefit: [] Client was an active participant throughout AEB contributing to discussion, providing personal examples, and taking notes. Client processed emotions felt in the activity and how they coped in the moment. Client provided input during discussion on the types of support our supports can provide. Client reflected on the types of support their current support system provides. Reported after identifying what type of supports they receive; they gained awareness that they could benefit from more emotional supports. Client identified steps to achieve this by being more open and reaching out to his . Client seemed to benefit from identifying the type of support client needs to work on improving. Client recommended to continue IOP tx to prevent decompensation, reduce self-criticism, and increase thought challenging skills. Narrative Note: []
--- NOTE | 2025-08-14 11:00 | BH.SGPN.GN ---
Behaviors/Verbalizations/Mental Status: []Pt alert and oriented, neat appearance. Eye contact good. Motor activity appropriate. Speech within normal limits. Affect congruent, mood depressed. Thoughts linear, logical, no signs of hallucinations or delusions. Client Response/Progress/Benefit: [] Pt responded well to session, contributing to discussion and attentive throughout. Pt identified a negative thought that has kept them stuck. Pt's thought was I?m stupid and I don?t do anything right in my life.? Pt reported when they think this way, pt wants to isolate and overcompensate. ?Pt worked to reframe the thought by finding more rational, realistic ways to look at the thoughts and then processed them within group setting. Pt reframed the thought to ?I don?t have to be the smartest person to know what I?m doing.? Pt appeared to benefit from practicing challenging negative thinking with peers and gaining coping skills. Pt will continue IOP tx to prevent decompensation, improve daily functioning, and combat distortions. Narrative Note: []
--- NOTE | 2025-08-15 09:10 | BH.MDN_ITS ---
Multi-Disciplinary Note Note 45-min Individual: Time Started:: 09:10 Date: 08/15/25 Purpose of session/treatment goals addressed:: Utilized session to review progress and symptoms. Began to address root causes of anxiety which is goal patient identified last week. Eye Contact:: Good Motor Activity:: Appropriate Appearance:: Casual Speech:: Appropriate Affect:: Full Thoughts:: Linear, Logical and No evidence of hallucinations/delusions noted Staff Interventions:: psychoeducation on: (mistaken beliefs), rapport building and other (addiction counseling) Client Response:: Patient reports overall improvement since the previous session and expresses that participation in the Intensive Outpatient Program (IOP) has been beneficial. He continues to manage multiple psychosocial stressors and responsibilities, noting the impact these have on his emotional well-being. The patient elaborated on the presence of persistent negative automatic thoughts contributing to heightened anxiety, primarily centered around perceived inadequacy and self-doubt. He identified these cognitions as co nsistent with symptoms of imposter syndrome. The patient demonstrated insight into the origins of his anxiety, attributing them to early developmental experiences and maladaptive core beliefs. He was receptive to psychoeducation regarding the role of cognitive distortions and core mistaken beliefs in maintaining anxiety symptoms. The latter portion of the session focused on the patient?s problematic pornography use (PPU), exploring its functional role, associated triggers, and its adverse impact on interpersonal relationships and overall functioning. Risks/Concerns:: No risks or concerns noted. No reports of suicidal ideations. Progress Toward Goals/Plan:: Progress noted. Patient remains consistent and actively engaged in the Intensive Outpatient Program (IOP) level of care. He demonstrates considerable insight into the nature and triggers of his anxiety. The patient has developed a comprehensive relapse prevention plan addressing his problematic pornography use (PPU), which includes leveraging social support, maintaining transparency, utilizing accountability software/applications on his phone, and attending support groups regularly. Although he has not relapsed or acted on urges, the patient reports difficulty providing himself positive reinforcement for progress. He presents as relying on willpower (?white- knuckling?) rather than adopting a cognitive shift toward adaptive coping and growth-oriented perspectives. Intervention included assigning the Mistaken Beliefs Questionnaire to assist in identifying maladaptive core beliefs contributing to anxiety symptoms. This will inform future cognitive restructuring and schema-focused interventions. Time Stopped:: 09:55
--- NOTE | 2025-08-15 10:10 | BH.SGPN.GN ---
Behaviors/Verbalizations/Mental Status: [] Eye contact is good. Motor activity is appropriate. Appearance is casual. Speech is Appropriate. Mood is anxious. Affect is constricted. Thoughts are linear and logical. No evidence of psychosis. Client Response/Progress/Benefit: [] Pt was an active participant and responded well to session AEB input and examples during group activity. Group discussed and practiced methods of reframing cognitive distortions. Client participated in identifying cognitive distortions when examples were provided. Client discussed in group the different strategies to overcome the distortions. Client identified cognitive distortion they used most often and made plan to identify and challenge thoughts that contribute to it as homework over the next couple of days. Will continue tx to challenge negative thoughts, improve confidence, and prevent decompensation.
--- NOTE | 2025-08-15 11:10 | BH.SGPN.GN ---
Behaviors/Verbalizations/Mental Status: []Eye contact is good. Motor activity is appropriate. Appearance is casual. Speech is Appropriate. Mood is depressed. Affect is congruent. Thoughts are linear and logical. No evidence of psychosis. Client Response/Progress/Benefit: [] Pt was an active participant and responded well to session AEB input and examples during group activity. Group discussed and practiced methods of reframing cognitive distortions. Pt participated in identifying cognitive distortions when examples were provided. Pt discussed in group the different strategies to overcome the distortions. Pt identified cognitive distortion they use most often which is labeling and pt reports plan to continue working on reframing these thoughts. Pt did well in small group during experiential activity and helped group identify answers. Will continue tx to promote use of healthy coping skills, combat distortions, and increase self-confidence. Narrative Note: []
--- NOTE | 2025-08-20 09:00 | BH.SGPN.GN ---
Behaviors/Verbalizations/Mental Status: [] Pt alert and oriented, Casually dressed and groomed. Eye contact good. Motor activity appropriate. Speech within normal limits. Affect tearful, mood depressed. Thoughts linear, logical, no signs of hallucinations or delusions. Reviewed pt?s symptom tracker today, denies suicidal ideation, plan, and intent.08/20/25 Client Response/Progress/Benefit: []Pt was an active participant in group discussions. Attentive. Per patients daily symptom tracker, pt indicates a 2/5 for depression and a 2/5 for anxiety, with 5 being severe. Pt's first mental health positive was spending his weekend relaxing, and not getting called to come into work. Pt's other mental health positive was that he feels very supported and encouraged by his family, friends, and scientologist, which he reports are his main support system. Pt's stressor was struggling to not act on certain thoughts and remaining strong despite wanting to give in. Pt was supportive and attentive to others in the group. Pt seemed to benefit from support from peers. Will continue IOP tx to promote healthy coping mechanisms, decrease negative thinking patterns, and prevent decompensation.
--- NOTE | 2025-08-20 10:10 | BH.SGPN.GN ---
Behaviors/Verbalizations/Mental Status: [] Eye contact is good. Motor activity is appropriate. Appearance is casual. Speech is Appropriate. Mood is anxious. Affect is congruent. Thoughts are linear and logical. No evidence of psychosis. Client Response/Progress/Benefit: [] Pt participated during the group discussion, providing input and remaining attentive during psychoeducation. Participated in experiential activity. Pt contributed during interactive discussion on the consequences of unhealthy expression of emotions. Provided input on the 3 important stages to managing emotions which included Awareness, Regulation, and Communication. Pt was able to relate and make connections between the experiential activity and the overall topic. Benefited from increased awareness of how stress and emotions can impact one's ability to communicate. Will continue in IOP to prevent decompensation, improve daily functioning, and increase the use of healthy coping skills. Narrative Note: []
--- NOTE | 2025-08-21 09:05 | BH.SGPN.GN ---
Behaviors/Verbalizations/Mental Status: [] Eye contact is good. Motor activity is appropriate. Appearance is casual. Speech is Appropriate. Mood is euthymic. Affect is full. Thoughts are linear and logical. No evidence of psychosis. Reviewed daily check in sheet and no reports of suicidal ideations Client Response/Progress/Benefit: [] Pt participated at times during the group discussions. Attentive. Shared mental health win as getting 8 hours of sleep. Reports a month w/o engaging in compulsive behaviors. Brief check-in however overall reports no significant mental health distress today. Progress noted. Benefited from group support, encouragement, and feedback. Will continue in IOP to maintain safety, prevent decompensation, and increase healthy coping. Narrative Note: []
--- NOTE | 2025-08-21 10:00 | BH.SGPN.GN ---
Behaviors/Verbalizations/Mental Status: [] Eye contact good. Motor activity appropriate. Appearance casual. Speech is appropriate. Mood is calm. Affect is congruent. Thoughts are linear and logical. no evidence of psychosis. Client Response/Progress/Benefit: []Pt was engaged and active participant in group discussion. Engaged an attentive during psychoeducation and interactive discussion on coping skills. why people use unhealthy coping skills. How to replace unhealthy coping skills, internal vs external coping skills. Attentive as peers came up with list of unhealthy coping skills. Pt reported connecting with the use of unhealthy coping skills. Group discussed the effects of maladaptive coping skills on mental health. Benefited from increased understanding of unhealthy coping skills and the need for developing healthy internal and external coping skills. Actively participated during experiential group activity and was able to relate activity to group topic. Will continue IOP to promote healthy coping skills, decrease negative thinking patterns, and prevent decompensation.
--- NOTE | 2025-08-21 11:10 | BH.SGPN.GN ---
Behaviors/Verbalizations/Mental Status: [] Client alert and oriented, casually dressed and groomed. Eye contact fair to good. Motor activity appropriate. Speech within normal limits. Affect congruent, mood anxious. Thoughts linear, logical, no signs of hallucinations or delusions. Client Response/Progress/Benefit: [] Client responded well to session AEB taking notes and providing input and examples throughout. Group discussed the different categories of coping skills which included distraction, emotional release, grounding, self-love, and access to greater self, and thought challenging. Client created a coping skill menu identifying various skills to try in each category. Client?s coping skill menu included: exercise, venting, prayer/meditation, healthy habits, and Delay, Distract, Decide. Appeared to benefit from increasing repertoire of healthy coping skills. Client will continue IOP tx to improve view of self, increase utilization of healthy coping skills, and prevent decompensation.
--- NOTE | 2025-08-22 09:05 | BH.SGPN.GN ---
Behaviors/Verbalizations/Mental Status: [] Eye contact is good. Motor activity is appropriate. Appearance is casual. Speech is Appropriate. Mood is anxious. Affect is full. Thoughts are linear and logical. No evidence of psychosis. Reviewed daily check in sheet and no reports of suicidal ideations Client Response/Progress/Benefit: [] Pt was an active participant in group discussions. Attentive. Very brief and superficial check-in. He is surprised that he has been able to ?juggle? work, IOP, and home life without significant distress. He had developed a very structured routine throughout the day to keep him busy which he believes benefits his mental health. Progress noted. Benefited from group support, encouragement, and feedback. Will continue in IOP to maintain safety, prevent decompensation, and increase healthy coping. Narrative Note: []
--- NOTE | 2025-08-22 10:15 | BH.SGPN.GN ---
Behaviors/Verbalizations/Mental Status: []Eye contact is good. Motor activity is appropriate. Appearance is neat. Speech is Appropriate. Mood is euthymic. Affect is congruent. Thoughts are linear and logical. No evidence of psychosis Client Response/Progress/Benefit: [] Pt was an active participant in group discussions AEB listening attentively to others and providing feedback at times. Participated in and was engaged during experiential activity. Able to relate activity to group topic of FOF. Engaged during interactive discussion on what failure means to the group in which peers identified and defined failure. Group was able to identify impact of fear of failure on mental health. Attentive during interactive discussion on the role that FOF plays in mental wellness, depression, anxiety, and growth. Pt reported fear of failure has kept pt from getting help with his mental health or reaching out. Benefited from increased awareness of how the role that FOF plays in mental health and decision-making. Will continue in IOP to prevent decompensation, gain healthy coping skills, and improve daily functioning. Narrative Note: []
--- NOTE | 2025-08-22 11:15 | BH.MDN ---
Multi-Disciplinary Note Note 45-min Individual: Time Started:: 11:15 Date: 08/22/25 Purpose of session/treatment goals addressed:: Reviewed current symptoms and stressors. Addressed treatment plan goal 2, objective 1. Eye Contact:: Good Motor Activity:: Appropriate Appearance:: Neat Speech:: Appropriate Mood:: Anxious Affect:: Congruent Thoughts:: Linear, Logical and No evidence of hallucinations/delusions noted Staff Interventions:: thought challenging, psychoeducation on: (relapse prevention) and taught coping skills Client Response:: Client presented in good spirits and demonstrated a positive affect throughout the session. He was able to articulate progress made over the past week, reporting that his anxiety symptoms are ?starting to creep down.? The client is actively utilizing adaptive coping strategies, including mindfulness and other [id number] grounding techniques. He shared that it has been approximately one month since engaging in compulsive behaviors, indicating sustained behavioral control. The initial goal for today?s session was to review the Mistaken Beliefs Questionnaire; however, the client had not completed it. Instead, the session focused on identifying and managing urges related to compulsive behaviors. The client provided a detailed psychosocial history regarding his struggles with compulsions and discussed the significant impact these behaviors have had on multiple domains of functioning, including interpersonal relationships, occupational performance, and overall quality of life. Risks/Concerns:: No risks or concerns noted. Denied SI on daily screener Progress Toward Goals/Plan:: Client continues to demonstrate consistency and engagement in the Intensive Outpatient Program (IOP). He reports a reduction in anxiety symptoms; however, persistent feelings of guilt, shame, and regret remain, contributing to depressive symptoms. The client also noted ongoing relational strain with his spouse as they work toward rebuilding trust, describing the dynamic as ?awkward.? Session focused on strategies to manage intrusive thoughts, compulsive urges, and nighttime anxiety. Client shared that he typically maintains a structured routine during the day (work, exercise, meal preparation), which serves as a protective factor. However, he experiences increased vulnerability to ruminative thinking and distress when activities wind down in the evening, leaving him alone with his thoughts. Time Stopped:: 12:00
--- NOTE | 2025-08-27 09:05 | BH.SGPN.GN ---
Behaviors/Verbalizations/Mental Status: [] Eye contact is good. Motor activity is appropriate. Appearance is casual. Speech is Appropriate. Mood is anxious. Affect is congruent. Thoughts are linear and logical. No evidence of psychosis. Reviewed daily check in sheet and no reports of suicidal ideations Client Response/Progress/Benefit: [] Pt participated at times during the group discussions. Attentive during video on mindfulness and provided feedback. Shared with the group increased anxiety which appear to be related to psychosocial stressors. Emotion for today is anxious and numb. Primary coping skills are his spirituality and his routine. He reports keeping myself busy throughout the day. He is working, attending IOP, and exercising daily. Limited progress. Benefited from group support, encouragement, and feedback. Will continue in IOP to maintain safety, prevent decompensation, and increase healthy coping. Narrative Note: []
--- NOTE | 2025-08-27 10:05 | BH.SGPN.GN ---
Behaviors/Verbalizations/Mental Status: []Eye contact is fair. Motor activity is appropriate. Appearance is neat. Speech is Appropriate. Mood is depressed. Affect is congruent. Thoughts are linear and logical. No evidence of psychosis. Client Response/Progress/Benefit: [] Pt was a passive participant in group discussions-mostly listening to machine shop apprentice. Attentive during psychoeducation on the 4 communication styles (Passive, Passive-Aggressive, Aggressive, and Assertive) and the obstacles to effective communication. Contributed during interactive discussion on the benefits of communicating effectively. Group identified the benefits and disadvantages to the different communication styles. Pt believes that they are primarily passive and pt struggles with being direct. Benefited from increased understanding of communication styles and how these can impact effective communication. Will continue in IOP to prevent decompensation, improve daily functioning, and increase self-confidence. Narrative Note: []
--- NOTE | 2025-08-28 10:10 | BH.SGPN.GN ---
Behaviors/Verbalizations/Mental Status: [] Eye contact is good. Motor activity is appropriate. Appearance is casual. Speech is Appropriate. Mood is anxious. Affect is congruent. Thoughts are linear and logical. No evidence of psychosis. Client Response/Progress/Benefit: [] Pt was engaged and participating throughout, providing input and taking notes. Attentive during psychoeducation on anxiety and cognitive triangle. Participated in an interactive discussion on defining anxiety and identifying cognitive and physiological symptoms of anxiety. The group discussed helpful vs harmful anxiety. Pt along with peers worked together to identify common physical/physiological signs of anxiety which included: increase heart rate, stomach ache, dry mouth, numbness/tingling, shakiness, crying, sweating, etc. Pt identified personal warning signs as being tried and exhausted. Benefited from increased awareness and insight on anxiety and its impact. Will continue in IOP to prevent decompensation, stabilize mood, and promote use of healthy coping skills. Narrative Note: []
--- NOTE | 2025-08-28 11:10 | BH.SGPN.GN ---
Behaviors/Verbalizations/Mental Status: []Eye contact is good. Motor activity is appropriate. Appearance is appropriate. Speech is Appropriate. Mood is anxious. Affect is congruent. Thoughts are linear and logical. No evidence of psychosis. Client Response/Progress/Benefit: [] Pt was an active participant AEB pt providing input and listening attentively to peers. Attentive during psychoeducation on mindfulness coping skills, body-based coping skills, and mind-based coping skills and their impact on reducing anxiety and improving overall mental health wellness. Group was able to identify self-soothing and mind-based coping skills which included: PMR, deep breathing, opposite action DDD, and meditation. Pt verbalized skill to make effort to use this week as: DDD and thinking in the pal. Pt will continue IOP to improve daily functioning, combat negative self-talk, and gain self-compassion. Narrative Note: []
--- NOTE | 2025-08-29 02:00 | BH.MTP_ITS ---
Treatment Plan Review Demographics Date of Admission:: 08/08/25 Date of Treatment Plan Review:: 08/29/25 Admitting Diagnoses:: Major Depressive Disorder, recurrent, severe, w/o psychotic features Generalized Anxiety Disorder Current Diagnoses:: Major Depressive Disorder, recurrent, severe, w/o psychotic features Generalized Anxiety Disorder Patient Status Patient's Response to Treatment:: Patient has remained consistent and actively engaged in Intensive Outpatient Program (IOP) level of care. Based on DSM-5 Cross-Cutting Symptom Measures, the patient demonstrated an overall 16% reduction in symptom severity since admission. Domain-specific improvements include: Depression: 43% reduction Anger: 67% reduction Anxiety: 22% reduction Suicidal ideation: 67% reduction Per patient self-report, there have been no behavioral enactments of compulsive urges or intrusive thoughts for over one month. The patient has implemented multiple accountability strategies, including the use of digital applications, to manage compulsive urges. Additionally, the patient has reduced environmental triggers through structured behavioral interventions and environmental modifications, thereby limiting access to high-risk stimuli. Status of Current Problems and Symptoms: Pt continues to verbalize daily anxiety and often feeling overwhelmed. Through work on mistaken beliefs we have identified the role Conditional Self-Marcella (a belief that self-esteem is contingent upon others? approval) and Unrealistic Self-Demands (a tendency to impose excessive expectations on oneself) have on his depression and anxiety. Progress Problem #1: Problem Name:: Depression- Overall outcomes show reduction Status of Goals:: Obj 1- not complete; has identified 2 mistaken beliefs as well as basic reframing and challenging strategies however we have not addressed cognitive distortion Obj 1- not complete; He is still working through psychoeducation groups on calming and coping strategies to incorporate in his emotion regulation plan. Team Recommendations:: continue with current plan as outcomes show progress. Problem #2: Problem Name:: Anxiety- overall outcomes show a reduction Status of Goals:: Obj 1- not complete; he has implemented several coping strategies to help with compulsive urges and anxiety Team Recommendations:: continue with current plan as outcomes show progress.
--- NOTE | 2025-08-29 09:00 | BH.SGPN.GN ---
Behaviors/Verbalizations/Mental Status: [] Eye contact is good. Motor activity is appropriate. Appearance is casual. Speech is Appropriate. Mood is anxious. Affect is congruent. Thoughts are linear and logical. No evidence of psychosis. Reviewed daily check in sheet and no reports of suicidal ideations Client Response/Progress/Benefit: [] Pt participated at times during the group discussions. Attentive. Reports ? high anxiety? this AM w/o a specific trigger. ? I?m running out of steam?. Despite verbalizing needing more free time he is upset with himself for not waking up at 4am to work out in the morning. His routine is very important to him as it helps keep him distracted and feeling productive throughout the day. Benefited from group support, encouragement, and feedback. Will continue in IOP to maintain safety, prevent decompensation, and increase healthy coping. Narrative Note: []
--- NOTE | 2025-08-29 10:10 | BH.SGPN.GN ---
Behaviors/Verbalizations/Mental Status: []Motor activity is appropriate. Appearance is neat. Speech is Appropriate. Mood is anxious and depressed. Affect is flat. Thoughts are linear and logical. No evidence of psychosis. Client Response/Progress/Benefit: [] Pt was an engaged participant AEB listening attentively to others, taking notes, and providing feedback in small group discussions. Attentive during psychoeducation AEB by note taking and providing some input. Pt worked along with peers in small groups to define inappropriate guilt and appropriate guilt. Interactive discussion on examples of both inappropriate and appropriate guilt. Pt able to connect impact inappropriate guilt can have on MH. Pt noted that his guilt has led to hiding and shame. Benefited from increased awareness of guilt and the differences between appropriate and inappropriate guilt. Pt to continue IOP tx to prevent decompensation, gain self-compassion, and improve daily functioning. Narrative Note: []
--- NOTE | 2025-08-29 11:00 | BH.MDN ---
Multi-Disciplinary Note Note 60-min Individual: Time Started:: 11:00 Date: 08/29/25 Purpose of session/treatment goals addressed:: Reviewed current symptoms and progress in IOP. Addressed treatment plan goal 1; objective 1. Eye Contact:: Good Motor Activity:: Appropriate Appearance:: Casual Speech:: Appropriate Mood:: Anxious Affect:: Congruent Thoughts:: Linear, Logical and No evidence of hallucinations/delusions noted Staff Interventions:: thought challenging and psychoeducation on: (mistaken beliefs) Client Response:: The session focused on reviewing the patient?s completed Mistaken Beliefs Questionnaire. The entire session was dedicated to exploring the patient?s responses, which revealed two prominent core maladaptive beliefs: Conditional Self-[place] ? a belief that self-esteem is contingent upon others? approval. Unrealistic Self-Demands ? a tendency to impose excessive expectations on oneself. We engaged in cognitive processing to examine the perceived benefits and potential consequences of maintaining these beliefs. Additionally, we explored the developmental origins of these schemas and identified specific life domains currently impacted by these cognitive distortions. The patient demonstrated insight into how these beliefs influence emotional regulation, interpersonal functioning, and overall psychological well-being. Risks/Concerns:: No risks or concerns noted. Denies any suicidal thoughts on daily screener. Progress Toward Goals/Plan:: Consistent and engaged with IOP level of care. Increased awareness of mistaken beliefs and their impact on his thoughts, emotions, and behaviors. Next session with work with the client on ways to challenge and reframe thoughts as well as create affirmations. Will continue in IOP to maintain safety, prevent decompensation, and improve functioning. Time Stopped:: 12:00
--- NOTE | 2025-09-03 09:00 | BH.SGPN.GN ---
Behaviors/Verbalizations/Mental Status: [] Pt alert and oriented, neatly dressed and groomed. Eye contact good. Motor activity appropriate. Speech within normal limits. Affect constricted, mood anxious. Thoughts linear, logical, no signs of hallucinations or delusions. Reviewed pt?s symptom tracker, no risk for suicidal ideation, plan, or intent 09/03/25. Client Response/Progress/Benefit: []Pt was an active participant in group discussions. Attentive. Able to identify mental health wins including ?my and I got a lot of stuff done this weekend and we had a good adventism service.? Pt's stressor today is ?there?s a lot of chaos in my schedule right now.? The group offered pt suggests managing this stressor and emotional support which pt reported was helpful. Pt is feeling ?anxious? this morning. Pt receptive to feedback from peers. Benefited from group support, encouragement, and feedback. Progress noted. Pt will continue IOP tx to reduce negative self-talk, improve self-compassion, and increase distress tolerance skills. ? Narrative Note: []
--- NOTE | 2025-09-03 10:10 | BH.SGPN.GN ---
Behaviors/Verbalizations/Mental Status: []Pt alert and oriented, casually dressed and groomed. Eye contact good. Motor activity appropriate. Speech within normal limits. Affect congruent, mood anxious. Thoughts linear, logical, no signs of hallucinations or delusions. Client Response/Progress/Benefit: [] Pt took notes and contributed to group discussions. Attentive during psychoeducation on growth mindset. Interactive group discussion on fixed mindset in which group verbalized their current fixed mindsets and how they affect their mental health. Pt shared common fixed mindset thoughts they have. Pt shared a personal fixed thought I?m an awful ? Pt able to connect negative impact fixed thoughts have on functioning. Pt benefited from increased awareness of growth mindset and fixed thoughts and how fixed thoughts impact their mental health. Will continue IOP tx to promote use of healthy coping skills, challenge negative thoughts, and prevent decompensation. Narrative Note: []
--- NOTE | 2025-09-03 11:10 | BH.SGPN.GN ---
Behaviors/Verbalizations/Mental Status: []Pt alert and oriented, casually dressed and groomed. Eye contact good. Motor activity appropriate. Speech within normal limits. Affect congruent, mood dysthymic. Thoughts linear, logical, no signs of hallucinations or delusions. Client Response/Progress/Benefit: [] Pt was an active participant during activity and discussion. Pt did well to remain attentive and participate as group worked on identifying characteristics and benefits of adopting a growth mindset. Worked with fellow participants in reframing the example fixed thoughts into growth mindset thoughts. Pt worked on changing own fixed thought. Pt attentive during discussion about different strategies that can help with fostering a growth mindset. Pt appeared to benefit from challenging own thoughts and engaging in the activity. Pt will continue IOP tx to improve view of self, increase consistent use of healthy coping skills, and prevent decompensation.
--- NOTE | 2025-09-04 11:15 | BH.SGPN.GN ---
Behaviors/Verbalizations/Mental Status: []Pt alert and oriented, casually dressed and groomed. Eye contact good. Motor activity appropriate. Speech within normal limits. Affect congruent, mood content. Thoughts linear, logical, no signs of hallucinations or delusions. Client Response/Progress/Benefit: [] Pt responded well to session AEB taking notes and contributing to discussion throughout. Pt engaged as group continued discussion on distress tolerance and the mental health benefits of widening their overall Window of Tolerance. Pt engaged with group in experiential activity provided input on connections between variables in the activity and distress tolerance. Worked within small groups to identify strategies to increase distress tolerance and reduce hyper-arousal and hypo-arousal states. Identified wanting to begin implementing distress tolerance skills of: opposite action, steping away, and self-care. Pt appeared to benefit from gaining insight and learning strategies to increase distress tolerance. Pt will continue IOP tx to promote use of healthy coping skills, challenge negative self-talk, and prevent decompensation. Narrative Note: []
--- NOTE | 2025-09-10 10:15 | BH.MDN ---
Multi-Disciplinary Note Note 45-min Individual: Time Started:: 10:15 Date: 09/10/25 Purpose of session/treatment goals addressed:: Reviewed current progress and symptoms. A majority of the session was used to process a recent stressor and his response. Addressed treatment plan goal 1, obj 2. Eye Contact:: Good Motor Activity:: Appropriate Appearance:: Casual Speech:: Appropriate Mood:: Irritable Affect:: Congruent Thoughts:: Linear, Logical and No evidence of hallucinations/delusions noted Staff Interventions:: CBT techniques, strengths perspective and taught coping skills Client Response:: Client reported experiencing a significant interpersonal event during the holiday period that elicited intense anger and distress. The session focused on processing his emotional response and reviewing emotion regulation strategies. Despite the activation of negative cognitions and heightened affect, the client demonstrated effective coping by utilizing adaptive skills, including acceptance, cognitive reframing, anger management techniques, and intentional ?letting go.? He also engaged in assertive communication and allowed vulnerability in appropriate contexts. Importantly, the client did not revert to maladaptive coping mechanisms or addictive behaviors, indicating progress in distress tolerance and impulse control. Risks/Concerns:: no risks or concerns noted. Denied suicidal thoughts on daily screener. Progress Toward Goals/Plan:: Client has remained consistent and actively engaged in the Intensive Outpatient Program (IOP), demonstrating notable progress. He effectively implemented skills and strategies acquired in treatment during a recent episode of significant emotional distress without resorting to maladaptive coping or addictive behaviors. The client utilized cognitive restructuring, acceptance, and intentional ?letting go? to manage anger, while acknowledging the validity of his emotional response. This reflects a solid foundation in emotion regulation and distress tolerance. We reviewed progress since the last treatment plan update, noting improved functioning across multiple domains: no medication concerns, enhanced marital relationship, decreased anxiety intensity, several weeks without suicidal ideation, and demonstrated ability to manage high-stress situations effectively. The client expressed agreement with the appropriateness of discharge. Plan: discharge scheduled for next week. Time Stopped:: 11:00
--- NOTE | 2025-09-10 11:15 | BH.SGPN.GN ---
Behaviors/Verbalizations/Mental Status: [] Eye contact is good. Motor activity is appropriate. Appearance is casual. Speech is Appropriate. Mood is anxious content. Affect is congruent. Thoughts are linear and logical. No evidence of psychosis. Client Response/Progress/Benefit: [] Pt was a semi-engaged participant in group discussion and activity, mostly listening as others contributed. Worked with group to identify strategies to help overcome barriers and obstacles to desired reality. Group developed strategies for the common barriers. Identified personal barriers to desired reality and was able to identify a skill of challenging his definition of enough to address barrier of negative self-talk. Pt seemed to benefit from increased repertoire of healthy coping skills/strategies to overcome common barriers to moving forward. Will continue in IOP to prevent decompensation, stabilize emotions, increase healthy coping, and improve functioning. Narrative Note: []
== END 2025-09-12 23:59 ==
LOC: BHIOP 08:07
PROVIDERS: PCP Family Medicine; Referring Provider Internal Medicine; Visit Provider Internal Medicine
DX: F33.2 Major depressive disorder, recurrent severe without psychotic features (principal); F41.1 Generalized anxiety disorder
CPT/HCPCS: S9480; 90834; 90837; 90853